=== PATIENT | male | born 1990 | race Caucasian/White ===

== ENCOUNTER 2019-12-30 23:24 | Emergency (ER) | payer OTHER, SELFPAY ==
[2019-12-30 23:24] VITALS: BP 152/87; PULSE 70; PULSE 77; RESP 16; TEMP 36.3; O2SAT 98; BMI 37.5
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
[2019-12-31] MEDS: Ketorolac 30 MG/ML Syringe IM (01:38)
== END 2019-12-31 01:42 | disposition home or self-care (01) ==
PROVIDERS: Emergency Provider Emergency Medicine
DX: M54.5 Low back pain (principal); V49.49XA Driver injured in collision with other motor vehicles in traffic accident, initial encounter; Y93.9 Activity, unspecified; Y92.9 Unspecified place or not applicable
CPT/HCPCS: 72100; 96372; 99281